=== PATIENT | male | born 1945 | race Caucasian/White ===

== ENCOUNTER 2020-01-08 12:17 | Outpatient (CLI) | payer OTHER ==
--- NOTE | 2020-01-08 13:56 | MRI ---
MRI lumbar spine noncontrast HISTORY: Low back pain with radiculopathy. COMPARISON: 09/02/2016. The conus medullaris has normal appearance. Vertebral body heights are maintained. There is reversal of the normal lordotic curvature. Prominent discogenic endplate changes throughout the bone marrow have progressed slightly. T12-L1: Mild osteophytosis. Central canal and neural foramina are patent. L1-2: Mild disc bulge. Posterior ligamentous thickening and facet joint hypertrophy. Mild stenosis of the central canal and each neural foramen. L2-3: Disc space narrowing and minimal degenerative retrolisthesis. Very mild disc bulge. Circumferen tial degenerative changes. Mild stenosis of the central canal. Moderate right and moderate to severe left foraminal stenoses. L3-4: Disc space narrowing and minimal degenerative retrolisthesis. Mild posterior disc bulge and cir cumferential degenerative changes. Mild stenosis of the central canal. Severe right and moderate to severe left foraminal stenoses. L4-5: Disc space narrowing and minimal degenerative retrolisthesis. Posterior disc bulge and circumfe rential degenerative changes. Moderate to severe stenosis of the central canal has progressed slightly since the prior study. Severe right and moderate to severe left foraminal stenoses. L5-S1: Mild posterior disc bulge. Thecal sac is patent. Prominent facet hypertrophy. Severe right and moderate to severe left foraminal stenoses. IMPRESSION : Mild progression of degenerative changes since the 2017 exam. Stenosis of the central canal most barbara re at the L4-5 level. Severe right foraminal stenoses at the lowest 3 levels.
== END 2020-01-08 12:18 | disposition home or self-care (01) ==
LOC: BICMRI 12:17
PROVIDERS: ATTEND Anesthesiology Pain Medicine
DX: M47.26 Other spondylosis with radiculopathy, lumbar region (principal); M48.061 Spinal stenosis, lumbar region without neurogenic claudication
CPT/HCPCS: 72148

== ENCOUNTER 2020-04-22 07:01 | Outpatient (CLI) | payer OTHER ==
[2020-04-22 11:41] LABS: Hemoglobin 15.3 g/dL (14.0-18.0); Mean Corpuscular HGB CONC 33.7 G/DL (32.0-36.0); Mean Corpuscular Hemoglobin 30.5 PG (27.0-33.0); Mean Corpuscular Volume 90.6 fl (80.0-100.0); Mean Platelet Volume 8.6 fl (7.4-10.4); Platelet Count 265 10x3/uL (130-400); RBC Distribution Width 12.4 % (11.5-14.5); Red Blood Cell (RBC) Count 5.01 10x6/uL (4.40-5.80); White Blood Cell (WBC) Count 8.4 10x3/uL (4.5-11.0)
[2020-04-22 11:54] LABS: Anion Gap 17 mmol/L (10-20); BUN (Urea Nitrogen) 19 mg/dL (8.4-25.7); Calc. Creatinine Clearance 0 mL/min (70-130); Calcium 9.4 mg/dL (7.8-10.44); Carbon Dioxide 22 mmol/L (23-31); Chloride 105 mmol/L (98-107); Glucose 82 mg/dL (83-110); Potassium 4.6 mmol/L (3.5-5.1); Sodium 139 mmol/L (136-145)
[2020-04-22 12:01] LABS: PTT 27.6 sec (22.0-33.0); Prothrombin Time 10.3 sec (9.5-12.1)
[2020-04-23 09:25] LABS: SARS-CoV-2 MS2 Positive; SARS-CoV-2 N Gene Negative; SARS-CoV-2 S Gene Negative; SARS-CoV-2 by NAA Not Detected (NotDetected); SARS-CoV-2 orf1ab Negative
--- NOTE | 2020-04-24 07:00 | EKG ---
Test Reason : PREOP Blood Pressure : / mmHG Vent. Rate : 062 BPM Atrial Rate : 062 BPM P-R Int : 232 ms QRS Dur : 070 ms QT Int : 386 ms P-R-T Axes : 053 035 057 degrees QTc Int : 391 ms Sinus rhythm with 1st degree A-V block Otherwise normal ECG No previous ECGs available Confirmed by BIRD HERNANDEZ, NIRAJ ([id number]) on 04/24/2020 7:00:42 AM Referred By: Gulshan WALLER Confirmed By:NIRAJ PANG MD
== END 2020-04-22 07:02 | disposition home or self-care (01) ==
LOC: LABBT 07:01
PROVIDERS: ATTEND Surgery
DX: Z01.818 Encounter for other preprocedural examination (principal); M48.062 Spinal stenosis, lumbar region with neurogenic claudication; M54.16 Radiculopathy, lumbar region; Z20.828 Contact with and (suspected) exposure to other viral communicable diseases
CPT/HCPCS: 80048; 85027; 85610; 85730; 87635; 93005; 93010; U0003

== ENCOUNTER 2020-04-26 07:58 | Day surgery (SDC) | payer OTHER ==
[2020-04-25 11:35] VITALS: BMI 27.9
[2020-04-26] MEDS ORDERED: Thrombin 5000 UNITS/5 ML VIAL ONE (09:29)
[2020-04-26] MEDS ORDERED: Fentanyl 100 MCG/2 ML VIAL ONE ×3 (09:41→12:41)
[2020-04-26] MEDS ORDERED: Ondansetron PF 4 MG/2 ML Vial IVP PRN (12:01)
[2020-04-26] MEDS ORDERED: Bisacodyl 10 MG SUPP PR PRN (12:01)
[2020-04-26] MEDS ORDERED: tiZANidine HCl 4 MG TAB PO PRN (12:01)
[2020-04-26] MEDS ORDERED: Milk Of Magnesia 30 ML UDCUP PO PRN (12:01)
[2020-04-26] MEDS ORDERED: Mag-Al 1200 mg/1200 mg/30 ML UDCUP PO PRN (12:01)
[2020-04-26] MEDS ORDERED: Acetaminophen 325 MG TAB PO PRN (12:01)
[2020-04-26] MEDS ORDERED: traMADol HCl 50 MG TAB PO PRN (12:01)
[2020-04-26] MEDS ORDERED: Lorazepam 1 MG TAB PO PRN (12:04)
[2020-04-26] MEDS ORDERED: hydrALAZINE 20 MG/ML VIAL SLOW IVP PRN (12:04)
[2020-04-26] MEDS ORDERED: Dexamethasone 20 MG/5 ML VIAL ONE (13:03)
[2020-04-26] MEDS ORDERED: ePHEDrine 50 MG/ML VIAL ONE (13:03)
[2020-04-26] MEDS ORDERED: Rocuronium Bromide 10 MG/ML (10ML VIAL) ONE (13:03)
[2020-04-26] MEDS ORDERED: Glycopyrrolate 0.2 MG/ML 5 ML SYRINGE ONE (13:03)
[2020-04-26] MEDS ORDERED: PHENYLEPHRINE-NS 100 MCG/ML 10 ML SYRINGE ONE (13:03)
[2020-04-26] MEDS ORDERED: Lidocaine 1% PF 5 ML VIAL ONE (13:03)
[2020-04-26] MEDS ORDERED: Ondansetron PF 4 MG/2 ML Vial ONE (13:03)
[2020-04-26] MEDS ORDERED: PROPOFOL 200 MG/20 ML VIAL ONE (13:03)
--- NOTE | 2020-04-26 13:41 | OP ---
DATE OF PROCEDURE: 04/26/2020 LOCATION: OR 12. ENVIRONMENTAL SERVICES AIDE: Edelmira Rouse PA-C. PREPROCEDURE DIAGNOSIS: Lumbar stenosis with low back and leg pain, bilateral. POSTPROCEDURE DIAGNOSIS: Lumbar stenosis with low back and leg pain, bilateral. PROCEDURES PERFORMED: 1. Left L3-L4 hemilaminotomy, foraminotomy. 2. L4-L5 laminectomy, partial facetectomy, foraminotomy. DESCRIPTION OF PROCEDURE: After informed consent was obtained from the patient, the patient was brought to the OR. Proper patient, pause, and identification were carried out. He was placed under excellent general endotracheal anesthesia and positioned prone on the OR table. All appropriate points were padded. We identified a midline lumbar sharon that would allow for the midline lumbar region that would allow for approach to the L3, L4, L5 dorsal spines and lamina. Linear sharon was made in this region. This area was sterilely cleansed, prepared and draped. Proper patient, pause, and identification were carried out. The left L3-L4 exposure along with L4-L5 exposure was done. This allowed for approach to the left L3-L4 segment, in which hemilaminotomy and foraminotomy were performed. We then performed L4-L5 laminectomy, partial facetectomy, foraminotomy with excellent decompression of the common dural tube and nerve roots. Copious irrigation occurred throughout as did maximizing hemostasis. The wound was then closed in anatomic layers. The patient emerged from anesthesia. Job ID: [id number]
[2020-04-26] MEDS: Sodium Chloride 0.9% 1,000 ML IV SCH (15:28)
[2020-04-26] MEDS ORDERED: Lisinopril 20 MG TAB PO SCH (16:00)
[2020-04-26] MEDS: CEFAZOLIN 2 GM in Premix Bag 1 BAG IVPB SCH (17:32)
[2020-04-26] MEDS: HYDROcodone/Acetaminophen 7.5/325 mg Tablet PO PRN ×2 (18:19→22:19)
[2020-04-26] MEDS: Morphine 2 MG/ML VIAL SLOW IVP PRN ×2 (18:43→23:07)
[2020-04-26] MEDS: Gabapentin 300 MG CAP PO SCH (20:15)
[2020-04-26] MEDS: Acetaminophen/Codeine 30-300mg Tablet PO PRN (20:18)
[2020-04-27] MEDS: CEFAZOLIN 2 GM in Premix Bag 1 BAG IVPB SCH (00:51)
[2020-04-27] MEDS: Sodium Chloride 0.9% 1,000 ML IV SCH (01:48)
[2020-04-27] MEDS: Gabapentin 300 MG CAP PO SCH (08:00)
[2020-04-27] MEDS: Acetaminophen/Codeine 30-300mg Tablet PO PRN (08:02)
[2020-04-27] MEDS ORDERED: Cholecalciferol 1,000 UNITS (25 MCG) TAB PO SCH (09:00)
[2020-04-27] MEDS ORDERED: Lisinopril 20 MG TAB PO SCH (09:00)
[2020-04-27] MEDS ORDERED: Multivit, Therapeutic 1 TAB PO SCH (09:00)
[2020-04-27 09:07] VITALS: BP 137/70; TEMP 97.3
[2020-04-27] MEDS ORDERED: Atorvastatin Calcium 10 MG TAB PO SCH (21:00)
--- NOTE | 2020-04-29 09:57 | DIS ---
DATE OF ADMISSION: 04/26/2020 DATE OF DISCHARGE: 04/27/2020 PROCEDURE: L3-L4 and L4-L5 hemilaminectomy. DISCHARGE SUMMARY: The patient is a 75-year-old male recently seen in the office by Dr. Bradford for progressive back and leg pain. He underwent decompressive laminectomies from L3-L5 on 04/26/2020. Following the surgery, he was transitioned to the Med/Surg floor, where his pain has been well controlled with p.o. medications, he is tolerating a regular diet, and he is voiding appropriately. He has been mobilizing in the department without any difficulty. We will go ahead and dismiss the patient to home. I have discussed home care precautions and we will have the patient follow up with Dr. Bradford in 2 weeks. He has been prescribed Anthon, tramadol, and tizanidine by Dr. Bradford's team and they have checked [employer] prior to discharge. Job ID: [id number]
== END 2020-04-27 12:28 | disposition home or self-care (01) ==
LOC: SDC 07:58 → SURG A 12:01 → SDC 04-27 12:28
PROVIDERS: ATTEND Surgery
PROC: 00NY0ZZ Release Lumbar Spinal Cord, Open Approach (ICD-10-PCS; principal; 2020-04-26)
DX: M48.062 Spinal stenosis, lumbar region with neurogenic claudication (principal); M54.16 Radiculopathy, lumbar region; I10 Essential (primary) hypertension; E78.5 Hyperlipidemia, unspecified; G47.30 Sleep apnea, unspecified; M19.90 Unspecified osteoarthritis, unspecified site; F41.9 Anxiety disorder, unspecified; Z79.82 Long term (current) use of aspirin; Z79.899 Other long term (current) drug therapy; Z87.891 Personal history of nicotine dependence
CPT/HCPCS: 76000; J0360; J0690; J1100; J2270; J2405; J2704; J3010; J3370; J3490